=== PATIENT | female | born 1955 | race Caucasian/White ===

== ENCOUNTER 2020-02-03 06:56 | Day surgery (SDC) | payer BC ==
[~2020-02-03 06:56] MED LIST: Acetaminophen TAB* 325 MG PO PRN; Buffered Lidocaine 1% SYRIN* 1 ML/SYRINGE INTRADERM ONE
[2020-02-03] MEDS ORDERED: Midazolam* 1 MG/ML 5 ML VIAL (5 MG) ONE (07:59)
[2020-02-03] MEDS ORDERED: fentaNYL* 50 MCG/ML 2 ML VIAL (100 MCG VIAL) ONE (07:59)
[2020-02-03 08:55] VITALS: BP 119/76
[2020-02-03] MEDS ORDERED: Cyclopentolate 1% OPTH.SOL* 2 ML BTL ONE (11:25)
[2020-02-03] MEDS ORDERED: Tetracaine 0.5% OPTH.SOL 4 ML* 1 DROP BTL ONE (11:25)
[2020-02-03] MEDS ORDERED: Tropicamide 1% OPTH.SOL* BTL ONE (11:25)
[2020-02-03] MEDS ORDERED: Phenylephrine OPHTH SOL 2.5%* 2 ML ONE (11:25)
[2020-02-03] MEDS ORDERED: Ketorolac 0.5% OPHTH (NF) 0.5 % 5 ML BTL ONE (11:25)
[2020-02-03] MEDS ORDERED: Lidocaine 1% MPF ** 5 ML VIAL ONE (11:25)
[2020-02-03] MEDS ORDERED: Neomycin/Polymy/Dex OPHTH.OIN* 3.5 GM ONE (11:25)
--- NOTE | 2020-02-04 00:57 | OP ---
DATE OF OPERATION: 02/03/20 [facility] DATE OF : 57 SURGEON: Kayden Yanez MD. RESIDENTIAL SALES EXECUTIVE: None. ANESTHESIA: Topical with intravenous sedation. PRE-OP DIAGNOSIS: Cataract with astigmatism, right eye. POST-OP DIAGNOSIS: Cataract with astigmatism, right eye. OPERATIVE PROCEDURE: Phacoemulsification cataract extraction with posterior chamber toric intraocular lens implant, right eye. COMPLICATIONS: None. ESTIMATED BLOOD LOSS: None. DESCRIPTION OF PROCEDURE: The patient was brought to the operating room and received intravenous sedation. A drop of tetracaine was placed in her right eye. The patient was prepped and draped in the usual sterile fashion for ophthalmic surgery and attention was directed to the right eye where a speculum was placed. A paracentesis was created at the 11 o'clock position. 0.1 cc of 1% preservative- free lidocaine was injected into the anterior chamber followed by DisCoVisc. The eye was digitally stabilized while a 2.75 mm keratome was used to create a triplanar clear corneal incision at the 9 o'clock position. A continuous curvilinear capsulorrhexis was created using a cystotome and Utrata forceps. BSS on a cannula was used to hydrodissect the lens from the capsule. Phacoemulsification was performed in a bcxanl-bzl-dprzdzn technique to create 4 fragments which were removed. Residual cortical material was removed with irrigation and aspiration. Provisc was used to inflate the capsular bag. The surface of the eye was lubricated and the eye pressure was checked. The ORA device was employed. An SN6AT3 13 diopter lens was chosen. This was placed into the capsular bag. It was aligned as per the reticule at approximately 60 degrees. The lens was stabilized in this position using a Sinskey hook for the paracentesis while irrigation and aspiration were performed to remove viscoelastic from the eye. The Sinskey hook was removed. BSS on a cannula was used to hydrate the corneal stroma and seal the wound. At the end of the case, the pupil was round. The lens was centered, stable, and axially aligned. The eye pressure appeared normal and the wound was water tight. The speculum was removed and topical Maxitrol ointment was placed on the surface of the eye. The eye was closed, patched, and shielded, and the patient was sent to recovery room in stable condition with postop instructions and followup appointment given. [id number]/[facility] #: [id number] ISABEL
== END 2020-02-03 09:08 | disposition home or self-care (01) ==
LOC: OREAST 06:56
PROVIDERS: ATTEND Ophthalmology
DX: H25.041 Posterior subcapsular polar age-related cataract, right eye (principal); H52.201 Unspecified astigmatism, right eye
CPT/HCPCS: A9270-GY; J2250; J3010; V2787

== ENCOUNTER 2020-02-10 08:08 | Day surgery (SDC) | payer BC ==
[2020-02-10] MEDS ORDERED: Midazolam* 1 MG/ML 5 ML VIAL (5 MG) ONE (09:21)
[2020-02-10] MEDS ORDERED: fentaNYL* 50 MCG/ML 2 ML VIAL (100 MCG VIAL) ONE (09:50)
[2020-02-10] MEDS ORDERED: Ketorolac 0.5% OPHTH (NF) 0.5 % 5 ML BTL ONE (10:11)
[2020-02-10] MEDS ORDERED: Tetracaine 0.5% OPTH.SOL 4 ML* 1 DROP BTL ONE (10:11)
[2020-02-10] MEDS ORDERED: Lidocaine 1% MPF ** 5 ML VIAL ONE (10:11)
[2020-02-10] MEDS ORDERED: Cyclopentolate 1% OPTH.SOL* 2 ML BTL ONE (10:11)
[2020-02-10] MEDS ORDERED: Neomycin/Polymy/Dex OPHTH.OIN* 3.5 GM ONE (10:11)
[2020-02-10] MEDS ORDERED: Tropicamide 1% OPTH.SOL* BTL ONE (10:11)
[2020-02-10] MEDS ORDERED: Phenylephrine OPHTH SOL 2.5%* 2 ML ONE (10:11)
[2020-02-10 10:33] VITALS: BP 129/65
--- NOTE | 2020-02-10 11:37 | OP ---
DATE OF OPERATION: 02/10/20 [facility] DATE OF : 57 SURGEON: Kayden Yanez MD. AGRICULTURAL CROP FARM MANAGER: None. ANESTHESIA: Topical with intravenous sedation. PRE-OP DIAGNOSIS: Cataract with astigmatism, left eye. POST-OP DIAGNOSIS: Cataract with astigmatism, left eye. OPERATIVE PROCEDURE: Phacoemulsification cataract extraction with posterior chamber toric intraocular lens implant, left eye. COMPLICATIONS: None. ESTIMATED BLOOD LOSS: None. DESCRIPTION OF PROCEDURE: The patient was brought to the operating room and received intravenous sedation. A drop of tetracaine was placed in her left eye. The patient was prepped and draped in the usual sterile fashion for ophthalmic surgery and attention was directed to the left eye where a speculum was placed. A paracentesis was created at the 5 o'clock position and 0.1 cc of 1% preservative- free lidocaine was injected in the anterior chamber followed by DisCoVisc. The eye was digitally stabilized while a 2.75 mm keratome was used to create a triplanar clear corneal incision at the 3 o'clock position. A continuous curvilinear capsulorrhexis was created using a cystotome and Utrata forceps. BSS on a cannula was used to hydrodissect the lens from the capsule. Phacoemulsification was performed in a cqqzrz-qfz-srmeynh technique to create 4 fragments which were removed. Residual cortical material was removed with irrigation and aspiration. The capsular bag was polished. The eye was inflated with Provisc. Intraocular pressure was checked and found to be appropriate. The surface of the eye was lubricated. The ORA device was employed. AN SN6AT3 11.5 diopter lens was chosen. This lens was folded and inserted into the capsular bag. It was dialed to the 30- degree axis as per the ORA's recommendation and preoperative measurements. The eye was stabilized in this position with a Sinskey hook for the paracentesis while irrigation and aspiration were performed to remove viscoelastic from the eye. The Sinskey hook was removed. BSS on a cannula was used to hydrate the corneal stroma and seal the wound. At the end of the case, the pupil was round. The lens was centered, stable, and axially aligned. The eye pressure appeared normal and the wound was watertight. The speculum was removed. Topical Maxitrol ointment was placed on the surface of the eye. The eye was closed, shielded, and patched , and the patient was sent to recovery room in stable condition with postop instructions and followup appointment given. [id number]/[facility] #: [id number] ISABEL
== END 2020-02-10 10:30 | disposition home or self-care (01) ==
LOC: OREAST 08:08
PROVIDERS: ATTEND Ophthalmology
DX: H25.042 Posterior subcapsular polar age-related cataract, left eye (principal); Z87.891 Personal history of nicotine dependence
CPT/HCPCS: A9270-GY; J2250; J3010; V2787